=== PATIENT | male | born 1975 | race Caucasian/White ===

== ENCOUNTER → 2018-10-22 | Outpatient (CLI) | payer OTHER ==
--- NOTE | 2018-10-22 10:09 | Diagnostic Imaging Report ---
INDICATION: Left wrist pain. TIME OF EXAMINATION: 0955 hours. TECHNIQUE: Three views of the left wrist were obtained. FINDINGS: The distal radius and ulna are intact. The carpus is intact. The metacarpals are unremarkable. No fractures are seen. IMPRESSION: No acute bony abnormality is detected. Dictated by: Dictated on workstation # [id number]
== END ==
LOC: RAD FS 09:41
PROVIDERS: ATTEND Nurse Practitioner
DX: M25.532 Pain in left wrist (principal)
CPT/HCPCS: 73110